=== PATIENT | female | born 1990 | race Caucasian/White ===

== ENCOUNTER → 2019-01-22 17:42 | Outpatient (CLI) | payer OTHER, SELFPAY ==
--- NOTE | 2019-01-22 | DI.MRI.S_ITS ---
PROCEDURE: MR KNEE RT WO CON INDICATIONS: RIGHT KNEE PAIN TECHNIQUE: Noncontrast sagittal PD fast spin echo and T2 fast spin echo with fat saturation, sagittal 3-D FLASH with fat saturation; coronal T1 spin echo and PD fast spin echo with fat saturation, and axial PD fast spin echo with fat saturation through the knee. COMPARISON: None. FINDINGS: Image quality: Excellent. Menisci: The medial and lateral menisci demonstrate normal morphology and internal signal. The meniscal root ligaments appear intact. Cruciate ligaments: Thickening and internal signal changes of the ACL suggest partial rupture/sprain. There is associated uncovering of the posterior horn of the lateral meniscus, a finding seen in the setting of ACL insufficiency. The PCL appears intact. Medial structures: The medial collateral ligament appears intact. The posterior oblique ligament, semimembranosus tendon insertions, oblique popliteal ligament, and meniscocapsular junction appear intact. Visualized portions of the pes anserinus tendons appear normal. No abnormal bursal fluid. Lateral structures: The lateral collateral ligament, long and short heads of the biceps femoris tendon appear intact. The popliteus tendon appears normal; the popliteofibular ligament appears intact. The posterosuperior and anteroinferior popliteomeniscal fascicles appear intact. The arcuate and fabellofibular ligaments appear intact, on either side of the lateral inferior geniculate artery. Iliotibial band appears normal. Anterior structures: Quadriceps tendon intact. There is proximal and distal patellar tendinopathy. Prepatellar and superficial infrapatellar subcutaneous edema/fluid. Bones and cartilage: Marrow contusions involving the medial aspect of the medial femoral condyle and the lateral tibial plateau. No discrete fracture line seen. The cartilage of the medial and lateral femorotibial compartments, as well as the patellofemoral compartment, appears normal in thickness. Joint space: Moderate joint effusion. No Biswas's cyst. IMPRESSION: Marrow contusions involving the medial femoral condyle and lateral tibial plateau. Partial rupture of the anterior cruciate ligament, potentially high-grade. Associated uncovering of the posterior horn of lateral meniscus. Please correlate to exam findings. Mild patellar tendinopathy. Moderate joint effusion. Dictated by: Jose J Patel M.D. on 01/23/2019 at 8:57 Approved by: Jose J Patel M.D. on 01/23/2019 at 9:08
== END ==
PROVIDERS: Visit Provider Orthopaedic Surgery Sports Medicine
DX: M25.561 Pain in right knee (principal); S83.511A Sprain of anterior cruciate ligament of right knee, initial encounter; S80.01XA Contusion of right knee, initial encounter; M25.461 Effusion, right knee
CPT/HCPCS: 73721

== ENCOUNTER → 2019-04-14 10:03 | Outpatient (CLI) | payer OTHER, SELFPAY ==
[2019-04-15 19:12] LABS: ANA Screen, IFA Negative (Negative)
[2019-04-17 14:26] LABS: B2-Glycoprotein I IgA AB < 9 SAU (< OR = 20); B2-Glycoprotein I IgG AB < 9 SGU (< OR = 20); B2-Glycoprotein I IgM AB < 9 SMU (< OR = 20); Cardiolipin Ab IgA < 11 APL; Cardiolipin Ab IgG < 14 GPL; Cardiolipin Ab IgM < 12 MPL; Phos. Serine AB IgM < 25 U/mL
== END ==
PROVIDERS: Visit Provider Registered Nurse
DX: Z82.69 Family history of other diseases of the musculoskeletal system and connective tissue (principal); Z83.2 Family history of diseases of the blood and blood-forming organs and certain disorders involving the immune mechanism
CPT/HCPCS: 36415; 85613; 86038; 86146; 86147; 86148

== ENCOUNTER → 2019-04-16 09:54 | Outpatient (CLI) | payer OTHER, SELFPAY ==
--- NOTE | 2019-04-16 09:55 | DI.US.S_ITS ---
PROCEDURE: US ABDOMEN LIMITED INDICATIONS: LOWER ABDOMINAL PAIN TECHNIQUE: Real-time focused scanning was performed of the abdomen, with image documentation. COMPARISON: None. FINDINGS: Scanning is performed at the area of the scar. No findings of hernia can be seen. There is 5 mm space between the rectus muscles. Within the subcutaneous tissues, there is a nonvascular hypoechoic focus that measures 3 x 3.4 x 1.6 cm, just superior to the pubis. IMPRESSION: No findings of hernia are seen. There is a nonvascular focus of hypoechoic soft tissue seen within the region of pain, which may be related to scarring. If clinically appropriate, please consider a dedicated CT scan with IV contrast this region. Dictated by: Henok Valdez M.D. on 04/16/2019 at 16:06 Approved by: Henok Valdez M.D. on 04/16/2019 at 16:08
== END ==
PROVIDERS: PCP Registered Nurse; Visit Provider Registered Nurse
DX: R10.30 Lower abdominal pain, unspecified (principal)
CPT/HCPCS: 76705

== ENCOUNTER → 2021-05-16 10:43 | Outpatient (CLI) | payer OTHER, SELFPAY ==
[2021-05-16 11:17] LABS: Add Manual Diff / Slide Review NO; Basophils Absolute Auto 0 /uL (0-100); Basophils Percent Auto 0.7 % (0-2); Eosinophils Absolute Auto 300 /uL (0-450); Eosinophils Percent Auto 5.5 % (2-4); Hemoglobin 13.3 g/dL (12.0-16.0); Lymphocytes Absolute Auto 1300 /uL (1100-4500); Lymphocytes Percent Auto 25.9 % (25-40); Mean Corpuscular Hemoglobin 30.3 PG (26-34); Mean Corpuscular Volume 89.3 fL (80-100); Monocytes Absolute Auto 300 /uL (0-900); Monocytes Percent Auto 7.1 % (3-14); Neutrophils Absolute Auto 3000 /uL (1500-7000); Neutrophils Percent Auto 60.8 % (50-75); Platelet Count 209 X10^3/uL (150-400); Red Blood Cell Count 4.37 X10^6/uL (4.0-5.2); White Blood Cell Count 4.9 X10^3/uL (4.5-11.0)
[2021-05-16 11:39] LABS: Alanine Aminotransferase 14 IU/L (<35); Albumin 4.3 g/dL (3.5-5.0); Albumin Globulin Ratio 1.7 (1.0-2.8); Alkaline Phosphatase 40 U/L (38-126); Aspartate Aminotransferase 22 IU/L (14-36); Bilirubin Total 0.9 mg/dL (0.2-1.3); Blood Urea Nitrogen 11 mg/dL (7-17); Carbon Dioxide 25 mmol/L (22-32); Chloride 105 mmol/L (98-107); Estimated Glomerular Filt Rate > 60.0 mL/min (>60); Globulin 2.6 g/dL (1.7-4.1); Glucose 88 mg/dL (70-100); HEMOLYSIS < 15 (0-50); Potassium 4.6 mmol/L (3.4-5.1); Sodium 137 mmol/L (137-145); Total Protein 6.9 g/dL (6.3-8.2)
[2021-05-16 12:08] LABS: TSH w/ Reflex to FT4 3.55 uIU/mL (0.47-4.68)
== END ==
PROVIDERS: PCP Registered Nurse; Referring Provider Registered Nurse; Visit Provider Registered Nurse
DX: F33.1 Major depressive disorder, recurrent, moderate (principal); F41.9 Anxiety disorder, unspecified; H93.239 Hyperacusis, unspecified ear; Z83.49 Family history of other endocrine, nutritional and metabolic diseases
CPT/HCPCS: 36415; 80053; 84443; 85025

== ENCOUNTER → 2022-06-15 07:33 | Outpatient (CLI) | payer OTHER, SELFPAY ==
--- NOTE | 2022-06-15 07:34 | DI.US.S_ITS ---
PROCEDURE: US PELVIC COMPLETE INDICATIONS: Suprapubic pain TECHNIQUE: Real-time scanning was performed of the pelvic organs, with image documentation. Additional endovaginal scanning was necessary due to incomplete visualization of the adnexal and endometrial structures by transabdominal scanning. COMPARISON: [facility], , US ABDOMEN LIMITED, 04/16/2019, 10:15. FINDINGS: Uterus: The uterus measures 9.1 x 4 x 5.5 cm. The IUD is seen at its expected location. The endometrial stripe itself is not well seen. Ovaries: The right ovary measures 3.2 x 2 x 2.6 cm, with a calculated ovarian volume of 8.5 cc. The left ovary measures 2.7 x 2.1 x 1.8 cm, with a calculated ovarian volume of 5.2 cc. The ovaries have a normal sonographic appearance, with a likely resolving cyst seen involving the right ovary that measures up to 2 cm. Less than 12 follicles can be seen in each ovary. No adnexal masses are seen. Other: No pathologic free abdominal or pelvic fluid. There is a focus of concern seen anterior to the bladder and slightly to the left of the midline that measures 3.3 x 2.4 x 4.6 cm, which previously measured 3 x 1.6 x 3.4 cm. Apparent small calcifications can be seen within it. There is an additional hypoechoic region seen posteriorly that measures 2 x 1.3 x 2.1 cm. IMPRESSION: 2 areas of soft tissue abnormality can be seen within the pelvis anteriorly. One of these measures slightly larger than on the prior ultrasound. Please now consider a dedicated CT of the pelvis versus gynecological protocol MRI (without and with contrast) for further evaluation (assuming that there is no contraindication). We strive to produce accurate, complete, and clear reports of imaging services. To assist us in improving patient care, this report was composed using standard report templates and voice recognition software. Therefore, it may contain abnormal punctuation, insertions and/or omissions. Occasional wrong-word or sound-alike substitutions may occur. Though we review the report and make efforts to correct it, we do recommend that the report be read carefully in proper context to recognize any text inaccuracies. Dictated by: Henok Valdez M.D. on 06/15/2022 at 14:33 Approved by: Henok Valdez M.D. on 06/15/2022 at 14:36
== END ==
PROVIDERS: Referring Provider Nurse Practitioner Family; Visit Provider Nurse Practitioner Family
DX: R10.2 Pelvic and perineal pain (principal)
CPT/HCPCS: 76830; 76856

== ENCOUNTER → 2022-06-21 14:31 | Outpatient (CLI) | payer OTHER, SELFPAY ==
--- NOTE | 2022-06-21 14:32 | DI.CT.S_ITS ---
PROCEDURE: CT ABDOMEN PELVIS W CON INDICATIONS: abdominal pain TECHNIQUE: After the administration of oral and intravenous contrast, axial sections were acquired from the lung bases to the pubic symphysis. Coronal and sagittal reformats were performed. For radiation dose reduction, the following was used: automated exposure control, adjustment of mA and/or kV according to patient size. COMPARISON:None. FINDINGS: Image quality: Excellent. Lung bases: Unremarkable. Heart: No significant findings. ABDOMEN: Liver: Unremarkable. Gallbladder: Unremarkable. Biliary ducts: Unremarkable. Pancreas: Unremarkable. Spleen: Unremarkable. Adrenal Glands: Unremarkable. Kidneys and Ureters: Unremarkable. Stomach and Bowel: Stomach, small bowel loops, and colon are unremarkable. The appendix is thin walled. Peritoneum: No abnormal intraperitoneal fluid. No free air. Ventral Wall: No hernia. Abdominal Nodes: No retroperitoneal or mesenteric adenopathy by size criteria. Vessels: Aorta and inferior vena cava are normal in size. PELVIS: Pelvic Organs: An IUD is present within the uterine fundus. The left ovary is unremarkable. A crenulated appearing cyst is present within the right ovary. Bladder: Unremarkable. Pelvic Nodes: No enlarged lymph nodes. Miscellaneous: No inguinal hernias are seen. Bones: Unremarkable. IMPRESSION: 1. No acute intra-abdominal findings. Normal appendix. 2. Crenulated appearing right ovarian cyst which may represent recently ruptured follicular cyst. Dictated by: Jaqueline Woodson M.D. on 06/21/2022 at 17:31 Approved by: Jaqueline Woodson M.D. on 06/21/2022 at 17:34
== END ==
PROVIDERS: PCP Family Medicine; Referring Provider Nurse Practitioner Family; Visit Provider Nurse Practitioner Family
DX: N83.201 Unspecified ovarian cyst, right side (principal); R10.9 Unspecified abdominal pain; Z97.5 Presence of (intrauterine) contraceptive device
CPT/HCPCS: 74177; Q9967

== ENCOUNTER → 2022-07-19 08:40 | Outpatient (CLI) | payer OTHER, SELFPAY ==
--- NOTE | 2022-07-19 08:41 | DI.MRI.S_ITS ---
PROCEDURE: MR PELVIS WO/W CON INDICATIONS: Suprapubic pain w/mass on exam; not seen on CT scan TECHNIQUE: Coronal HASTE, sagittal breath-hold T2 FSE; axial T1 FSE with and without fat saturation through the pelvis. Optional long- and short-axis uterine nonbreath-hold T2 FSE through the uterus. Sagittal or axial dynamic VIBE during administration of contrast. Post-contrast axial or coronal VIBE/2-D FLASH with fat saturation from the iliac crests to the symphysis. Optional diffusion weighted imaging and ADC may be performed. COMPARISON: [facility], CT, CT ABDOMEN PELVIS W CON, 06/21/2022, 16:18. [facility], US, US PELVIC COMPLETE, 06/15/2022, 7:47. FINDINGS: Image quality: Excellent. Uterus: Uterus is normal in size. An intrauterine device is seen in expected position. A Caesarean section scar is noted at the lower uterine segment. Endometrium is normal in thickness. Junctional zone is normal in thickness at 12 mm or less. Adnexa: Both ovaries are normal in size, without suspicious cystic or solid lesions. A simple right ovarian cyst measures up to 4.5 x 3.7 by 3.6 cm. Urinary system: Bladder wall is normal in thickness. Distal ureters are non distended. Urethra appears normal in morphology. Nodes and vessels: No pelvic or inguinal adenopathy by size criteria. Iliac vessels are normal in size. Bowel and peritoneum: A small amount of free fluid in the pelvis is nonspecific and may be physiologic. Inferior colon and small bowel loops are normal in caliber. Soft tissues: There is heterogeneous enhancing tissue within the anterior abdominal wall in the midline at the level of the Caesarean section scar. The area of enhancement measures approximately 3.8 x 1.9 x 3.7 cm and corresponds with the abnormality on ultrasound from 06/15/2022. There is heterogeneous T2-weighted signal and heterogeneous T1-weighted signal with small foci of [id number] signal. No significant intrapelvic component is seen. No definite diffusion restriction. No inguinal hernias. No findings of pelvic floor incompetence in the absence of provocation. Bones: Marrow demonstrates normal overall signal. IMPRESSION: 1. Irregular 3.8 cm enhancing lesion within the midline anterior abdominal wall at the level of the section scar corresponds to the ultrasound abnormality from 06/15/2022. Differential considerations include endometriosis versus exuberant scar formation versus other benign or malignant soft tissue masses. 2. Simple 4.5 cm right ovarian cyst. 3. Small amount of free fluid in the pelvis may be physiologic. Approved by: Nikita Bray M.D. on 07/19/2022 at 13:39
== END ==
PROVIDERS: Referring Provider Physician Assistant; Visit Provider Physician Assistant
DX: R19.09 Other intra-abdominal and pelvic swelling, mass and lump (principal); N83.201 Unspecified ovarian cyst, right side; R10.2 Pelvic and perineal pain; R10.9 Unspecified abdominal pain; R93.89 Abnormal findings on diagnostic imaging of other specified body structures
CPT/HCPCS: 72197; A9579

== ENCOUNTER 2022-12-07 06:37 | Day surgery (SDC) | payer OTHER, SELFPAY ==
[2022-12-04 15:20] VITALS: BMI 34.5
[2022-12-07] VITALS (7 sets, daily range): BP systolic 115–124; BP diastolic 63–79; PULSE 71–83; RESP 14–18; TEMP 36.4–36.7; O2SAT 98–100; BMI 34.5
--- NOTE | 2022-12-07 | PATH_ITS ---
[facility] Accession Number: [id number] No. of containers..01 Tissue . 01 Material submitted: . ovary - RIGHT OVARIAN CYST . 01 Diagnosis: A. Right Ovarian Cyst, Cystectomy: Fragments of benign hemorrhagic corpus luteal cyst. No evidence of borderline tumor or malignancy. MRV 12/12/2022 1840 Local . 01 Electronically signed: . Bisi Henry MD, Pathologist NPI- [id number] . 01 Gross description: . The specimen is received in formalin labeled with the patient's name, , and right ovarian cyst, and consists of two roberts membranous soft tissue fragments aggregating to 3.0 x 1.6 cm and average 0.1 cm thick. The presumed external surface is smooth with no puckering identified and is inked blue. The presumed internal surface is roberts, slightly velvety, with no excrescences or lesions identified. These fragments are serially sectioned. Also included are multiple brown, hemorrhagic soft tissue fragments aggregating to 2.4 x 1.2 x 0.6 cm. The specimen is submitted entirely as follows: A1-A2: Inked membranous fragments. A3-A4: Hemorrhagic fragments. ([id number]) /FRR 12/09/2022 1505 Local . 01 Pathologist provided ICD-10: R22.2 . 01 CPT . 985568 Specimen Comment: A courtesy copy of this report has been sent to [phone] Performed at: [facility] [address] [place] [address] Suite [facility], [place], [place] [id number] MD Neeraj Lau MD Phone: [phone]
[2022-12-07] MEDS: SCOPOLAMINE 1 PATCH TOP (07:19)
[2022-12-07] MEDS: LACTATED RINGERS 1,000 ML 42 ML IV (07:21)
--- NOTE | 2022-12-07 07:41 | PM.GYNHP.1 ---
History of Present Illness History of Present Illness Reason for admission: pelvic pain and other (History of ovarian cysts, mass in previous incision) Narrative: Helen Vivas is a 32 year old female 2 para 2 who presents for a diagnostic laparoscopy with removal of any ovarian cysts, and exploration previous Pfannenstiel incision and removal of mass. [facility] Medical History Abnormal vaginal bleeding Surgical History Anesthesia History of third molar tooth extraction Status post delivery (06/23/11) Status post delivery (05/12/16) Status post tonsillectomy and adenoidectomy (~1992) Family History Father No problems noted. Mother No problems noted. Sister No problems noted. Social History marital status: household members: spouse lives independently: Yes caregiver/support person: No pets and animals: No education level: high school carbon monox detector in home: Yes firearms in home: No Smoking Status: Former smoker Tobacco: How many years used: 7 alcohol intake: current substance use type: does not use during the past year weight has: remained stable well-balanced diet: rarely or never daily servings fruits/ve-1 caffeine: Yes eating out: 1-3 times/week Type(s) of exercise: walking frequency: 1-2 times per week duration: 30-45 minutes/day Meds Home Medications and Allergies Home Medications Medication Instructions Recorded Confirmed Type levonorgestrel 21 mcg/24 hours (8 52 mg INTRAU CONT ##0 08/22/16 10/18/22 History yrs) 52 mg intrauterine device (Mirena) ibuprofen 600 mg tablet 600 mg PO Q6HP PRN Pain 04/08/19 12/07/22 History Collagen PO 05/16/21 08/08/22 History minocycline 100 mg capsule 100 mg PO BID #60 caps 02/15/22 12/07/22 Rx venlafaxine 37.5 mg 75 mg PO DAILY #60 caps 07/26/22 12/07/22 Rx capsule,extended release 24 hr semaglutide (weight loss) SUBCUT 08/08/22 08/08/22 History Allergies Allergy/AdvReac Type Severity Reaction Status Date / Time No Known Drug Allergies Allergy Verified 12/07/22 06:39 Exam Vital Signs (past 8 hours): - 12/07/22 06:58 Temperature 97.9 F Pulse Rate 78 Respiratory Rate 16 Blood Pressure 122/79 Pulse Oximetry 98 Oxygen Delivery Method Room Air Oxygen Delivery Method Room Air Narrative Exam Narrative: HEENT: No thyromegaly, no anterior cervical or supraclavicular lymphadenopathy. Lungs:Clear to auscultation bilaterally, no wheezes. Cardiovascular: Regular rate and rhythm, no murmurs, rubs, or gallops. Abdomen: Well-healed scars. No hepatosplenomegaly. No masses palpable. External genitalia: Normal Vagina: Normal Cervix: Normal Bimanual exam: 9 Week size uterus. Mobile.No adnexal masses or tenderness Ext: No edema Assessment & Plan Assessment & Plan narrative: Assessment: 32-year-old 2 para 2 with a history of ovarian cysts, pelvic pain, and a mass in the previous Pfannenstiel incision Plan: Diagnostic laparoscopy with removal of any ovarian cysts, exploration of previous Pfannenstiel incision with removal of mass The risks, benefits, and alternatives to the procedure were explained to the patient. The risks including bleeding, infection, injury to the bowel, bladder, or ureters. She understands these risks and agrees to proceed. A full par Q was held and consent form was signed. Time Spent With Patient Time with patient: less than 30 minutes Critical Care time: I spent a total of [] minutes of critical care time on this patient's care today; this time is exclusive of procedural time.
--- NOTE | 2022-12-07 07:45 | PM.PREOP ---
Pre-operative Note COVID-19 Criteria for continued procedure: Non-surgical alternatives not available or appropriate per current SOC Interval Note History & Physical reviewed/Exam performed by Physician: Yes Changes to H&P: No H&P completed within 30 days and has changed as indicated here:: 12/07/22
[2022-12-07] MEDS: CEFAZOLIN 2 GM/100 ML PREMIX 100 ML IV (07:52)
[2022-12-07] MEDS: ACETAMINOPHEN IV 1,000 MG/100 ML VIAL 400 MG IV (08:05)
--- NOTE | 2022-12-07 08:28 | SUR.OPER ---
Lithotomy on padded OR bed, head on pillow, arms wrapped in gel pads and tucked. Legs secured in padded yellow fins stirrups.
[2022-12-07] MEDS: BUPIVACAINE 0.25% (PF) VIAL 30 ML INJ (08:44)
[2022-12-07] MEDS: EPINEPHrine 1 MG/ML INJ (09:05)
--- NOTE | 2022-12-07 09:26 | P.OP_ITS ---
Operative Date/Time/Diagnoses Date of procedure: 12/07/22 Time of procedure: 09:40 Pre-op diagnosis: h/o ovarian cysts Pelvic pain Mass in previous C/S scar Post-op diagnosis: same Procedure & Clinicians Procedure: Procedures Operation Date: 12/07/22 07:45 Actual Procedure Side Surgeon p Laparoscopic excision of Right Ovarian Cyst,Aspiration bilateral ovarian cysts, exploration of csection scar and removal of mass Gloria Bustos MD Indications: h/o ovarian cysts Pelvic pain Mass in previous C section incision Surgeon: Gloria Bustos Event Marketing Manager: Crys Stover Anesthesia Type: General and Local Operative Notes Findings: 9 wk size anteverted uterus Normal liver and gallbladder Normal appendix Simple cysts of both ovaries, Right 4cm, left 5cm Hemorrhagic cyst of right ovary 2.5cm No evidence of endometriosis Large collections of fat globules in the incision Closure Type: primary Specimen(s): other (hemorrhagic cyst of right ovary) Estimated blood loss (mL): 5 Blood products transfused: none Procedure in detail: After informed consent was obtained, the patient was taken to the operating room where she was placed in the dorsal supine position. After adequate general endotracheal anesthesia was achieved, she was placed in the dorsal lithotomy position, and prepped and draped in the usual sterile fashion. A time-out was performed. A moistened sponge stick was placed into the vagina due to presence of Mirena IUD. Attention was then turned to the abdomen where 6 cc of 0.5% Marcaine with epinephrine were injected in the umbilical fold. A 5 mm incision was made. The Veress needle was placed into the peritoneal cavity, and its placement confirmed by aspiration drop test. The abdominal cavity was insufflated with 4.3 L of CO2. The Veress needle was removed, and a 5 mm trocar was placed without difficulty. Two other 5 mm incisions were made 4 cm lateral to the midline at the level of the umbilicus. Two 5 mm trocars were placed under direct visualization. A hemorrhagic cyst on the right ovary was grasped with an atraumatic grasper. Using the power seal, the cyst was excised with cautery and cut. This was placed into the anterior cul-de-sac. Using the point aspirator, simple cysts were aspirated on both ovaries. The power seal was used to cauterize the area around the cyst. Hemostasis was achieved. The pieces of the hemorrhagic cyst were removed through the 5 mm trocars. The previous Pfannenstiel incision was opened in the midline. The incision was carried into the subcutaneous layer. At the area of a mass seen on ultrasound and MRI, there was found to be large fat globules. These were removed. There was no evidence of endometriosis in the Pfannenstiel scar. Hemostasis was achieved with the Bovie. Three simple interrupted sutures with 3-0 Vicryl were placed in the subcutaneous layer. All of the incisions were closed on the skin with 4-0 Monocryl in a subcuticular fashion. Steri-Strips and Allevyn dressings were placed. The moistened sponge stick was removed from the vagina. Sponge, lap, and instrument counts were correct x2. The patient tolerated the procedure well, and was taken to PACU in stable condition. Complications: none Post-operative Condition: stable Disposition: PACU Plan for aftercare: Home after recovery
[2022-12-07] MEDS: ONDANSETRON 4 MG/2 ML INJ IV (10:00)
[2022-12-07] MEDS: OXYCODONE IR 5 MG TABLET PO (10:00)
== END 2022-12-07 10:48 | disposition home or self-care (01) ==
PROVIDERS: Referring Provider Obstetrics & Gynecology; Visit Provider Obstetrics & Gynecology
PROC: (CPT 58662; principal; 2022-12-07 07:45)
DX: R10.2 Pelvic and perineal pain (principal); N83.11 Corpus luteum cyst of right ovary
CPT/HCPCS: 58662; 81025; J0131; J0171; J0690; J1100; J1885; J2250; J2405; J2704; J3010; J3490

== ENCOUNTER → 2023-06-26 13:43 | Outpatient (CLI) | payer OTHER, SELFPAY ==
--- NOTE | 2023-06-26 13:45 | DI.RAD.S_ITS ---
PROCEDURE: XR KNEE RT 3V INDICATIONS: Right knee pain TECHNIQUE: 3 views of the knee were acquired. COMPARISON: [facility], RG, KNEE 3VW (RT), 12/25/2018, 19:33. FINDINGS: Bones: No fractures or dislocations. No suspicious bony lesions. Soft tissues: No joint effusion. No suspicious soft tissue calcifications. IMPRESSION: No definite radiographic abnormality. If pain persists with conservative management, consider cross sectional imaging such as CT or MRI for further assessment. Dictated by: Flavio Chavez [facility] Interpreted: Nikolay Yu MD on 06/26/2023 at 13:57 Transcribed by: GARRETT on 06/26/2023 at 13:58 Approved by: Nikolay Yu M.D. on 06/27/2023 at 7:07
== END ==
PROVIDERS: PCP Family Medicine; Referring Provider Family Medicine; Visit Provider Family Medicine
DX: M25.561 Pain in right knee (principal)
CPT/HCPCS: 73562

== ENCOUNTER → 2023-07-10 11:41 | Outpatient (CLI) | payer OTHER, SELFPAY ==
[2023-07-10 13:57] LABS: Add Manual Diff / Slide Review NO; Basophils Absolute Auto 0 /uL (0-100); Basophils Percent Auto 0.8 % (0-2); Eosinophils Absolute Auto 300 /uL (0-450); Eosinophils Percent Auto 7.3 % (2-4); Lymphocytes Absolute Auto 1100 /uL (1100-4500); Mean Corpuscular HGB Conc 35.1 % (30-36); Mean Corpuscular Hemoglobin 31.1 PG (26-34); Mean Corpuscular Volume 88.6 fL (80-100); Monocytes Absolute Auto 400 /uL (0-900); Monocytes Percent Auto 8.1 % (3-14); Neutrophils Absolute Auto 2700 /uL (1500-7000); Neutrophils Percent Auto 58.8 % (50-75); Platelet Count 190 X10^3/uL (150-400); Red Blood Cell Count 4.17 X10^6/uL (4.0-5.2); Red Cell Distribution Width 12.6 % (11.6-14.8); White Blood Cell Count 4.6 X10^3/uL (4.5-11.0)
[2023-07-10 14:20] LABS: INR 0.9 (0.9-1.3); Prothrombin Time 10.7 SECONDS (10.1-12.7)
[2023-07-10 14:45] LABS: Alanine Aminotransferase 19 IU/L (<35); Albumin Globulin Ratio 1.6 (1.0-2.8); Alkaline Phosphatase 42 U/L (38-126); Aspartate Aminotransferase 23 IU/L (14-36); BUN Creatinine Ratio 14.5 (6-22); Bilirubin Total 0.8 mg/dL (0.2-1.3); Blood Urea Nitrogen 10 mg/dL (7-17); Calcium 9.2 mg/dL (8.4-10.2); Carbon Dioxide 25 mmol/L (22-32); Chloride 104 mmol/L (98-107); Estimated Glomerular Filt Rate > 60 mL/min (>60); Globulin 2.5 g/dL (1.7-4.1); Glucose 82 mg/dL (70-100); HEMOLYSIS < 15 (0-50); Potassium 4.2 mmol/L (3.4-5.1); Sodium 137 mmol/L (137-145); Total Protein 6.5 g/dL (6.3-8.2)
[2023-07-10 15:12] LABS: TSH w/ Reflex to FT4 3.14 uIU/mL (0.47-4.68)
== END ==
PROVIDERS: PCP Family Medicine; Referring Provider Family Medicine; Visit Provider Family Medicine
DX: T14.8XXA Other injury of unspecified body region, initial encounter (principal); F41.9 Anxiety disorder, unspecified; Z00.00 Encounter for general adult medical examination without abnormal findings; D64.9 Anemia, unspecified
CPT/HCPCS: 36415; 80053; 84443; 85025; 85610

== ENCOUNTER 2024-01-27 15:06 | Emergency (ER) | payer OTHER, SELFPAY ==
[2024-01-27 15:10] VITALS: BP 144/85; PULSE 88; RESP 16; TEMP 36.4; O2SAT 98; BMI 34.7
--- NOTE | 2024-01-27 15:21 | DI.RAD.S_ITS ---
PROCEDURE: XR KNEE RT 3V INDICATIONS: Rt knee pain post soccer play sudden pop, toe touch TECHNIQUE: 3 views of the knee were acquired. COMPARISON: [facility], CR, XR KNEE RT 3V, 06/26/2023, 13:47. FINDINGS: Bones: No fractures or dislocations. No suspicious bony lesions. Soft tissues: No joint effusion. No suspicious soft tissue calcifications. IMPRESSION: No acute bony abnormality or significant effusion. If there remains a high clinical concern or the patient cannot bear weight, consider cross-sectional imaging to exclude an occult fracture. Dictated by: Moises Garzon M.D. on 01/27/2024 at 16:01 Approved by: Moises Garzon M.D. on 01/27/2024 at 16:02
--- NOTE | 2024-01-27 16:10 | ED_ITS ---
HPI - Extremity Injury (Lower) <Ciara Cueto PA-C - Last Filed: 01/27/24 16:41> General Chief Complaint: Extremity Injury, Lower Stated Complaint: tore R ACL Sunday, pain and numbness in foot Time Seen by Provider: 01/27/24 16:03 Source: patient Mode of arrival: Ambulatory History of Present Illness HPI Narrative: 33-year-old female presents today with right knee pain. She was playing soccer with her daughter on it buckled and then she went to ground. She has a history of an ACL grade 3 tear according to her by MRI in 2018, she has no prior surgical intervention. She reports since that time it is always ?buckled, but she never described any locking. Today she is having pain and swelling over the lateral aspect of her right knee. She has been using a Velcro neoprene knee sleeve as well as her own crutches which has helped her. She reports ?some numbness going down her leg and some pain on the lateral right thigh. She is denying any other injuries. She did try some ibuprofen last dose was 800 mg last night as well as some topical CBD along with some ice. She has a follow up appointment this with her PCP. All other systems are reviewed and are negative. Related Data Home Medications Medication Instructions Recorded Confirmed levonorgestrel 21 mcg/24 hours (8 52 mg INTRAU CONT ##0 08/22/16 06/26/23 yrs) 52 mg intrauterine device (Mirena) ibuprofen 600 mg tablet 600 mg PO Q6HP PRN Pain 04/08/19 06/26/23 Previous Rx's Medication Instructions Recorded minocycline 100 mg capsule 100 mg PO BID #60 caps 01/30/23 bupropion HCl 150 mg 24 hr tablet, 150 mg PO QAM #90 tabs 06/26/23 extended release bupropion HCl 75 mg tablet 75 mg PO DAILY #7 tabs 06/26/23 venlafaxine 37.5 mg 75 mg (2 x 37.5 mg) PO DAILY #7 06/26/23 capsule,extended release 24 hr caps bupropion HCl 150 mg 24 hr tablet, 150 mg PO QAM #90 tabs 01/24/24 extended release hydrocodone 5 mg-acetaminophen 325 1 tab PO Q8H PRN pain #9 tabs 01/27/24 mg tablet Allergies Allergy/AdvReac Type Severity Reaction Status Date / Time No Known Drug Allergies Allergy Verified 06/26/23 13:08 Review of Systems <Ciara Cueto PA-C - Last Filed: 01/27/24 16:41> Review of Systems Narrative: All other systems reviewed and are negative. Patient History <Ciara Cueto PA-C - Last Filed: 01/27/24 16:41> Medical History Abnormal vaginal bleeding Bruising Right knee pain Surgical History Anesthesia History of third molar tooth extraction Status post delivery (06/23/11) Status post delivery (05/12/16) Status post tonsillectomy and adenoidectomy (~1992) Family History Father No problems noted. Mother No problems noted. Sister No problems noted. Social History marital status: household members: spouse lives independently: Yes caregiver/support person: No pets and animals: No education level: high school carbon monox detector in home: Yes firearms in home: No Smoking Status: Former smoker Tobacco: How many years used: 7 alcohol intake: current substance use type: does not use during the past year weight has: remained stable well-balanced diet: rarely or never daily servings fruits/ve-1 caffeine: Yes eating out: 1-3 times/week Type(s) of exercise: walking frequency: 1-2 times per week duration: 30-45 minutes/day Smoking Status: Former smoker alcohol intake frequency: 3 or more drinks per day Alcohol type: beer Substance Use Type: does not use Exam <Ciara Cueto PA-C - Last Filed: 01/27/24 16:41> Initial Vital Signs Initial Vital Signs: Vital Signs Temperature 97.6 F 01/27/24 15:10 Pulse Rate 88 01/27/24 15:10 Respiratory Rate 16 01/27/24 15:10 Blood Pressure 144/85 H 01/27/24 15:10 Pulse Oximetry 98 01/27/24 15:10 Oxygen Delivery Method Room Air 01/27/24 15:10 Vital signs reviewed and are normal except for elevated systolic. HENMT Head: normal to inspection, normocephalic and atraumatic Face and sinus: normal facial exam Mouth: oral mucosae normal, lip normal and tongue normal Teeth and gingiva: dentition normal Eyes General: Yes appearance normal, both eyes and all related structures Neck Neck: normal visual inspection and full ROM Other: No focal bony midline tenderness to the neck. Chest Other: Atraumatic. Resp Other: Auscultation is normal, no wheezes rales or rhonchi. Cardio Other: Regular rate and rhythm, no tachycardia. GI Other: Atraumatic, soft nontender. Back/Spine/Pelvis Other: Atraumatic, no discoloration, swelling, focal bony midline tenderness. Skin Other: Skin is intact, normal color, turgor, temperature. Extrem Other: Right knee exam is limited due to her pain and swelling, there are no breaks in skin, no discoloration. She has lateral and anterior soft tissue swelling with both lateral and medial joint line tenderness. Patella does track normally there is no crepitation. No popliteal tenderness or swelling. Anterior drawer reveals slight laxity, but she is guarded due to pain. Flexion causes pain she is able to flex about 45? only. She is able to be bear weight but feels unsteady. Gentle varus and valgus stressing also cause pain with guarding. Negative ballottement, negative patellar apprehension. Laurent's is not performed due to body habitus and positioning in the exam chair. She has tenderness along her ITB band as well, no issues identified with the lower leg ankle or foot. She has normal DP and PT pulses, distal neurovascular is grossly intact with normal capillary refill and sensory. <Eleanor Faye DO - Last Filed: 01/29/24 09:44> Initial Vital Signs Initial Vital Signs: Vital Signs Temperature 97.6 F 01/27/24 15:10 Pulse Rate 88 01/27/24 15:10 Respiratory Rate 16 01/27/24 15:10 Blood Pressure 144/85 H 01/27/24 15:10 Pulse Oximetry 98 01/27/24 15:10 Oxygen Delivery Method Room Air 01/27/24 15:10 Course <Ciara Cueto PA-C - Last Filed: 01/27/24 16:41> Orders Ordered: ED Orders 01/27/24 15:21 XR knee RT 3V Stat Vital Signs Vital signs: Vital Signs - 8 hr 01/27/24 15:10 Temperature 97.6 F Pulse Rate 88 Respiratory Rate 16 Blood Pressure 144/85 H Pulse Oximetry 98 Oxygen Delivery Method Room Air <Eleanor Fab Faye DO - Last Filed: 01/29/24 09:44> Orders Ordered: ED Orders 01/27/24 15:21 XR knee RT 3V Stat Vital Signs Vital signs: Vital Signs - 8 hr 01/27/24 15:10 Temperature 97.6 F Pulse Rate 88 Respiratory Rate 16 Blood Pressure 144/85 H Pulse Oximetry 98 Oxygen Delivery Method Room Air MDM - Extremity Injury (Lower) <Ciara Cueto PA-C - Last Filed: 01/27/24 16:41> Medical Records Attestation: I reviewed the patient's medical records. Imaging Data Extremity x-ray #1: My Impression: No acute bony abnormality. Radiologist's Impression: PROCEDURE: XR KNEE RT 3V INDICATIONS: Rt knee pain post soccer play sudden pop, toe touch TECHNIQUE: 3 views of the knee were acquired. COMPARISON: [facility], , XR KNEE RT 3V, 06/26/2023, 13:47. FINDINGS: Bones: No fractures or dislocations. No suspicious bony lesions. Soft tissues: No joint effusion. No suspicious soft tissue calcifications. IMPRESSION: No acute bony abnormality or significant effusion. If there remains a high clinical concern or the patient cannot bear weight, consider cross-sectional imaging to exclude an occult fracture. Dictated by: Moises Garzon M.D. on 01/27/2024 at 16:01 Approved by: Moises Garzon M.D. on 01/27/2024 at 16:02 [facility] Narrative Medical decision making narrative: Patient self reports a grade 3 ACL tear from 2019 with no surgical intervention with chronic buckling since that time. She has a new injury and an ACL tear can not be excluded, along with meniscal tear and or LCL or MCL sprain versus tearing. There is no effusion on her x-ray which is a good clinical sign but she does have some anterior lateral swelling. She does have an appointment already scheduled with her PCP this . She already has a very comfortable knee brace, I reviewed proper application and adjusted it for her. She already has crutches so she will be nonweightbearing or assisted weightbear and continue with her ibuprofen with food, I have added some [place] for bedtime pain, red flag warning signs are reviewed in detail. Use caution with narcotic analgesia, it can cause constipation, can cause impairment, no driving. She should be driving anyway as this is her right leg and she would have delayed breaking or reactions due to her injury. Please continue to ice and elevate the leg as much as possible, please return to the emergency department if you have increased swelling, pain, loss of sensation or weakness or any other worrisome symptoms. Discharge Plan Departure Patient Disposition: Home Clinical Impression: Injury of knee, right Qualifiers: Encounter type: initial encounter Qualified Code(s): S89.91XA - Unspecified injury of right lower leg, initial encounter Instructions: DI for Knee Pain Activity Restrictions/Additional Instructions: Please follow-up with your primary care as scheduled this . Please wear the knee brace at all times, you may remove it for bedtime or at least loosen it as it can cause numbness or tingling. Please use your crutches for assisted weightbear, weightbear whichever is more comfortable. The goal is to avoid fall and secondary injury. Please continue with icing, you may continue the ibuprofen for the next several days, you may warrant additional imaging such as MRI and/or physical therapy and your PCP can arrange for both of those. I have prescribed [place] which can cause sedation, can also cause constipation. You should not be driving with this injury as you will be unable to apply the break in an emergency and again were trying to avoid any additional incidents or injuries. Please return to the emergency department if you have increased swelling, pain, or any other worrisome symptoms. Prescriptions: New hydrocodone-acetaminophen 5-325 mg tablet 1 tab PO Q8H PRN (Reason: pain) Qty: 9 0RF No Action Mirena 1 EACH intrauterine device 52 mg INTRAU CONT Qty: 0 minocycline 100 mg capsule 100 mg PO BID Qty: 60 3RF bupropion HCl 150 mg tablet extended release 24 hr 150 mg PO QAM Qty: 90 0RF Rx Instructions: DUE FOR APPT WITH PCP 01/24/24 ibuprofen 600 mg tablet 600 mg PO Q6HP PRN (Reason: Pain) Patient Comments: Right knee pain s/p MCL injury 11/2018 bupropion HCl 75 mg tablet 75 mg PO DAILY Qty: 7 0RF Rx Instructions: Start this dose 1st then advanced to 150 mg bupropion HCl 150 mg tablet extended release 24 hr 150 mg PO QAM Qty: 90 1RF Rx Instructions: Start this dose after the 1st week of 75 mg venlafaxine 37.5 mg capsule,extended release 24hr 75 mg PO DAILY Qty: 7 1RF Rx Instructions: Use this dose wall weaning off the venlafaxine while titrating up the bupropion Referrals: Pramod Mclean DO [Primary Care Provider] - Stand Alone Forms: Patient Portal/API ED Sign-out <Eleanor Faye DO - Last Filed: 01/29/24 09:44> Cosign ED Attending Cassandra Attestation: I was immediately available in the department for consultation.
--- NOTE | 2024-01-27 16:16 | PC.NURSE ---
patient has a hx of pain in the knee with ACL injury in 2019 as viewed on MRI. She thinks she reinjured it 2 days ago since she feels like she knows the symptoms. She has her own crutches and is able to move around with them well. She made an Rodrigo for with her PCP, Jonh Acosta. Provider is in room assessing the patient
[2024-01-27 16:48] VITALS: BP 145/74; PULSE 69; RESP 16; O2SAT 98
== END 2024-01-27 16:50 | disposition home or self-care (01) ==
PROVIDERS: Emergency Provider Physician Assistant Medical; PCP Family Medicine
DX: S89.91XA Unspecified injury of right lower leg, initial encounter (principal); X50.1XXA Overexertion from prolonged static or awkward postures, initial encounter; Y93.66 Activity, soccer
CPT/HCPCS: 73562; 99281; 99283

== ENCOUNTER → 2024-02-09 10:10 | Outpatient (CLI) | payer OTHER, SELFPAY ==
--- NOTE | 2024-02-09 10:11 | DI.MRI.S_ITS ---
PROCEDURE: MR KNEE RT WO CON INDICATIONS: PT x 1 yr with new injury to knee, chronic acl tear, TECHNIQUE: Noncontrast sagittal PD fast spin echo and T2 fast spin echo with fat saturation, sagittal 3-D FLASH with fat saturation; coronal T1 spin echo and PD fast spin echo with fat saturation, and axial PD fast spin echo with fat saturation through the knee. COMPARISON: [facility], CR, XR KNEE RT 3V, 01/27/2024, 15:29. [facility], CR, XR KNEE RT 3V, 06/26/2023, 13:47. [facility], MR, MR KNEE RT WO CON, 01/22/2019, 17:56. FINDINGS: Image quality: Excellent. Menisci: The posterior horn of the medial meniscus is abnormal in morphology. There is a linear vertical T2 hyperintensity involving the posterior horn and body of the medial meniscus, compatible with tear. There is lateral meniscal extrusion and intrasubstance degeneration of the lateral meniscus. The meniscal root ligaments appear intact. Cruciate ligaments: Chronic anterior cruciate ligament partial tear is healed. No acute anterior cruciate ligament tear. The posterior cruciate ligament is intact. Medial structures: There is grade I spleen of the medial collateral ligament (series 10 image 19-20). The semimembranosus tendon insertions and meniscocapsular junction appear intact. Visualized portions of the pes anserinus tendons appear normal. No abnormal bursal fluid. Lateral structures: The lateral collateral ligament, long and short heads of the biceps femoris tendon appear intact. The popliteus tendon appears normal. Iliotibial band appears normal. Anterior structures: The quadriceps and patellar tendons appear intact. Patellar alignment is normal. No femoral trochlear dysplasia or ventral trochlear prominence. No edema in the infrapatellar fat pad. Bones and cartilage: No bone marrow contusions or fractures. There is mild cartilage fibrillation with preserved cartilage thickness. Joint space: There is small knee joint effusion. No Biswas's cyst. Normal appearing synovial plicae are incidentally noted. IMPRESSION: 1. Circumferential tear of the posterior horn and body of the medial meniscus. 2. Lateral meniscal extrusion with intrasubstance degeneration. 3. Low-grade sprain of MCL, likely chronic. 4. 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 5. Small knee joint effusion. 6. Mild cartilage fibrillation with preserved cartilage thickness. Dictated by: Gifty Chapman M.D. on 02/11/2024 at 10:31 Approved by: Gifty Chapman M.D. on 02/11/2024 at 14:39
== END ==
PROVIDERS: PCP Family Medicine; Referring Provider Physician Assistant; Visit Provider Physician Assistant
DX: S83.241A Other tear of medial meniscus, current injury, right knee, initial encounter (principal); S83.511A Sprain of anterior cruciate ligament of right knee, initial encounter; S83.411A Sprain of medial collateral ligament of right knee, initial encounter; S89.91XA Unspecified injury of right lower leg, initial encounter; M25.461 Effusion, right knee; X58.XXXA Exposure to other specified factors, initial encounter
CPT/HCPCS: 73721